=== PATIENT | female | born 1965 | race American Indian/Alaskan Native ===

== ENCOUNTER 2016-04-25 12:41 | Outpatient (CLI) | payer BC ==
--- NOTE | 2016-04-25 16:44 | Ultrasound Report ---
TRANSABDOMINAL AND TRANSVAGINAL PELVIC ULTRASOUND: 04/25/16 12:41:00 CLINICAL: Menorrhagia. FINDINGS: Transabdominal and transvaginal pelvic ultrasound demonstrated a normal uterus measuring 10.5 x 4.5 x 5.8 cm. Normal uterine contour and echogenicity. No uterine fibroid or mass.A normal secretory phase endometrium measures 10.0 mm. Normal right ovary with a dominant 1.9 cm follicle. The right ovary measures 2.6 x 2.1 x 2.5cm. The left ovary contains a 2.7 cm cyst with thin septations. The left ovary measures 4.2 x 3.5 x 3.7cm. No adnexal mass. No free fluid. Normal urinary bladder. IMPRESSION: 1. Normal uterus. 2. Normal right ovary with a dominant 1.9 cm follicle. 3. A 2.7 cm mildly septated left ovarian cyst or follicle.
== END 2016-04-25 12:42 | disposition home or self-care (01) ==
LOC: SPVWC 12:41
PROVIDERS: ATTEND Internal Medicine
DX: N83.202 Unspecified ovarian cyst, left side (principal); N92.0 Excessive and frequent menstruation with regular cycle
CPT/HCPCS: 76830; 76856

== ENCOUNTER 2017-11-10 13:04 | Outpatient (CLI) | payer BC ==
--- NOTE | 2017-11-10 15:39 | Mammography Report ---
BILATERAL DIGITAL SCREENING MAMMOGRAM with CAD: 11/10/17 13:04:00 CLINICAL: Routine screening. COMPARISON:04/18/16 FINDINGS: The breasts are heterogeneously dense, which may obscure small masses. An irregular right outer breast mass is new and requires additional imaging.No architectural distortion or suspicious calcifications.The left breast is negative. IMPRESSION: Right upper mass requiring further workup. BI-RADS CATEGORY: 0 -- Additional Imaging Evaluation Required RECOMMENDATION: Recall for right mediolateral , spot magnification exaggerated CC and MLO views and right breast ultrasound. ACR BI-RADS MAMMOGRAPHIC CODES: 0 = Needs additional imaging evaluation; 1 = Negative; 2 = Benign; 3 = Probably benign; 4 = Suspicious; 5 = Malignant; 6 = Known biopsy-proven malignancy COMMENT: 1. Dense breast tissue, i.e., adenosis, fibrocystic changes, etc., may obscure an underlying neoplasm. 2. Approximately 10% of cancers are not detected with mammography. 3. A negative mammography report should not delay biopsy if a clinically suspicious mass is present. COMMENT: Patient follow-up letters are generated via our [employer] application.
== END 2017-11-10 13:05 | disposition home or self-care (01) ==
LOC: SPVWC 13:04
PROVIDERS: ATTEND Obstetrics & Gynecology
DX: Z12.31 Encounter for screening mammogram for malignant neoplasm of breast (principal)
CPT/HCPCS: 77067

== ENCOUNTER 2018-01-13 13:04 | Outpatient (CLI) | payer BC ==
--- NOTE | 2018-01-13 15:00 | Mammography Report ---
RIGHT DIGITAL DIAGNOSTIC MAMMOGRAM: 01/13/18 13:04:00 CLINICAL: For clip placement immediately status post ultrasound biopsy. COMPARISON:01/09/18 FINDINGS: A biopsy clip is now identified in the upper outer quadrant and is concordant with the previously identified mass.Note that it was described as 2 separate masses on the previous ultrasound but with today's scanning it appears to be a single mass with a lobular shape. IMPRESSION: Concordant clip placement status post ultrasound biopsy. BI-RADS CATEGORY: 5 - - Highly Suggestive of Malignancy Pathology pending.
--- NOTE | 2018-01-13 15:16 | Ultrasound Report ---
ULTRASOUND GUIDED NEEDLE CORE BIOPSY LEFT BREAST WITH CLIP PLACEMENT: 01/13/18 CLINICAL: Right upper outer breast masses. COMPARISON :01/09/18 FINDINGS: The procedure was explained to the patient and informed consent was obtained. Ultrasound demonstrated a single lobular shaped mass in the axillary tail of the breast measuring 2.0 cm maximum. The prior scan suggested 2 separate masses which now appear to be lobular projections which are connected and are one in the same mass on this exam. I marked the breast with a felt tip marker and a time out was called. The skin was prepped with Betadine and anesthetized with 1% lidocaine. Needle core biopsy was performed through a tiny dermatotomy using ultrasound guidance, 2% lidocaine with epinephrine for deep anesthesia and a 14-gauge Achieve biopsy device. 3 cores were obtained and placed in formalin. A clip was deployed within the mass. The patient tolerated the procedure well and there were no apparent complications. Hemostasis was achieved with minimal pressure and a sterile dressing was applied. A two view mammogram demonstrated satisfactory placement of the clip. She left the department in good condition and was given instructions for wound care and followup. IMPRESSION: Uncomplicated ultrasound guided needle core biopsy with clip placement right breast.
== END 2018-01-13 13:05 | disposition home or self-care (01) ==
LOC: SPVWC 13:04
PROVIDERS: ATTEND Obstetrics & Gynecology
DX: C50.611 Malignant neoplasm of axillary tail of right female breast (principal); Z72.89 Other problems related to lifestyle
CPT/HCPCS: 88305; 88341; 88342